=== PATIENT | female | born 1995 | race Caucasian/White ===

== ENCOUNTER 2018-05-20 19:56 | Emergency (ER) | payer OTHER ==
[~2018-05-20] VITALS: Ht 172.7 cm; Wt 106.6 kg
[2018-05-20 20:02] VITALS: Ht 172.7 cm; Wt 106.6 kg
[2018-05-20 21:40] VITALS: BP 126/74
== END 2018-05-20 21:40 | disposition home or self-care (01) ==
LOC: ED 19:56
DX: F41.9 Anxiety disorder, unspecified (principal); F60.3 Borderline personality disorder